=== PATIENT | female | born 1990 | race Caucasian/White ===

== ENCOUNTER 2020-07-03 14:41 | Inpatient (IN) | payer OTHER, SELFPAY ==
--- NOTE | 2020-07-03 14:15 | ADMGEN ---
This patient, Khushboo Feliz, was admitted to Medical Room 252-01. Patient/family oriented to hospital policies and general routines including ID bracelet, bed and alarms, visiting hours, pain management, procedures, bathroom and other care routines, personal items, smoking policy, room service/diet, and visiting hours. Information on how to activate the Rapid Response Team has been discussed. Patient/Family are encouraged to report perceived risks to care and to ask questions if they do not understand what they are told or what they should do.
[2020-07-03 14:30] VITALS: BP 109/69; PULSE 76; RESP 20; TEMP 36.3; O2SAT 100
[2020-07-03 14:44] VITALS: BMI 27.3
[2020-07-03 15:11] LABS: Hematocrit 32.2 % (37.0-47.0); Mean Corpuscular HGB Conc 31.1 g/dl (32-36); Mean Corpuscular Hemoglobin 23.7 pg (26-34); Mean Corpuscular Volume 76.3 fl (80-100); Mean Platelet Volume 9.4 fl (7.4-10.4); Platelet Count Result 196 k/mm3 (150-375); Red Blood Count 4.22 M/mm3 (4.2-5.4); Red Cell Distribution Width 17.2 % (11.5-14.5); White Blood Count 9.4 K/mm3 (4.5-10.0)
[2020-07-03] MEDS: hydrOXYzine HCl 50 MG/ML VIAL 25 MG IM ×2 (15:12→20:19)
[2020-07-03 15:20] LABS: Potassium 3.8 mmol/L (3.4-5.0)
[2020-07-03] MEDS: KETOROLAC 30 MG/ML VIAL (*BKC) IV PUSH (15:23)
[2020-07-03] MEDS: MORPHINE SULFATE (*CRX) 2 MG/ML INJ IV PUSH ×2 (15:24→17:26)
[2020-07-03 15:27] LABS: Alanine Aminotransferase 10 U/L (4-35); Albumin Level 3.9 g/dL (3.5-5.1); Alkaline Phosphatase 77 U/L (38-126); Anion Gap 4 mmol/L (8-16); Aspartate Amino Transferase 22 U/L (14-36); Bilirubin,Total 0.3 mg/dL (0.2-1.3); Blood Urea Nitrogen 5 mg/dL (7-17); Calcium 9.1 mg/dL (8.4-10.2); Carbon Dioxide 29 mmol/L (22-30); Chloride 101 mmol/L (98-107); Estimated CRCL calculation 96 ml/min; Estimated Glomerular Filt Rate > 60; Glucose 109 mg/dL (65-105); Sodium 134 mmol/L (137-145)
[2020-07-03 15:37] LABS: Beta HCG Quantitative < 2.39 mIU/ML; D Dimer 1.68 ug/mL (<0.48)
[2020-07-03 15:52] LABS: Thyroid Stimulating Hormone 0.383 uIU/mL (0.465-4.680)
--- NOTE | 2020-07-03 16:04 | PC.NURSE ---
Called and left voice message for Orin BERMUDEZ regarding elevated D-dimer and continued c/o right sided chest pain with inspiration. Patient also c/o right sided headache - rates both locations 8/10 on pain scale.
[2020-07-03 16:21] LABS: Free T4 Free Thyroxine 1.02 ng/mL (0.78-2.19)
[2020-07-03 18:00] VITALS: BP 106/51; PULSE 69; RESP 16; TEMP 36.1; O2SAT 95
--- NOTE | 2020-07-03 18:57 | WPDHPUPDATE1 ---
History and Physical Update Update Date/Time: 07/03/20 18:57 History and Physical has been reviewed, including an updated exam of the patient. Labs reviewed. Slight hyponatremia noted and anemia is stable from [facility] at Hb 10. Her DDIMER is persistently elevated and she continued to complain about headache and chest pain. She says the ER doc says they couldnt see the lungs but when I reviewed ER documentation, it said CTA neg PE . She is agitated and asked to go smoke a cigarette. Reports her pain is still there and toradol worked the best but morphine isnt helping much. Discussed the laparoscopy procedure in detail and removal of ovarian cyst seen on left ovary. Unlikely ongoing hemorrhage but could have adhesions or hemorrhagic cysts that weigh the ovary over torsing it intermittently. However, with new onset persistent headache and new onset vision changes in the past week with elevated D DIMER, I wanted to have clearance by Medical team and Anesthesia before proceeding with laparoscopy. Will need better pain control and nicotine patch. Will review orders and give something for agitation. If unable to obtain clearance tonight, may allow the patient to eat dinner and proceed with surgery in morning. Risks, benefits, and alternatives have been discussed and questions answered. Patient agrees to proceed with procedure.
[2020-07-03 20:00] VITALS: BP 122/73; PULSE 75; RESP 20; TEMP 36.2; O2SAT 100
[2020-07-03] MEDS: NICOTINE (*PBKC) 21 MG PATCH 1 PATCH TRANSDERM (20:15)
[2020-07-03] MEDS: MEPERIDINE HCL INJ (*CRX) 50 MG/ML AMPUL IM (20:19)
--- NOTE | 2020-07-03 20:24 | PC.NURSE ---
2015 PT ON PHONE WITH MOTHER, YELLING AND CRYING SAYING NOONE CARES THAT I'M IN PAIN. I'M GOING TO SIGN OUT AND GO TO [facility]. INFORMED PT I'M WAITING ON MEDS FROM PHARMACY. I NEED THE NICOTINE PATCH NOW AND IT PROBABLY WONT DO ME ANY GOOD SINCE I'VE BEEN CRAVING A CIGARETTE FOR HOURS.
[2020-07-03 21:09] LABS: Add Urine Microscopic? YES; Appearance Urine Cloudy (Clear); Bacteria Urine Trace /hpf; Bilirubin Urine Negative (Negative); Blood Urine Negative (Negative); Color Urine Yellow (Yellow); Glucose Urine UA Negative (Negative); Ketones Urine 1+ mg/dL (Negative); Leukocyte Esterase Ur 2+ LEU/UL (NEGATIVE); Mucus Urine Few /lpf; Nitrate Urine Negative (Negative); Protein Urine Negative (Negative); Specific Grav Ur 1.012 (1.001-1.035); Squamous Epithelial Cell Urine Few /hpf (Few); Urobilinogen Urine Negative mg/dL (<2.0)
--- NOTE | 2020-07-03 21:40 | PC.NURSE ---
PT SIGNED OUT AMA
--- NOTE | 2020-07-03 21:41 | PC.NURSE ---
GUANAKO BERMUDEZ AND DR WORTHY NOTIFIED PT SIGNED OUT AMA
--- NOTE | 2020-07-13 13:40 | PM.GYNPNOP ---
TUFTING MACHINE OPERATOR SINGLE NEEDLE - A/P Time Spent With Patient Time: Total time spent is greater than 50% in coordination of care (as documented) at patient's floor/unit and/or counseling patient: Time with patient: less than 15 minutes TUFTING MACHINE OPERATOR SINGLE NEEDLE- PN:Subj Post-Op Subjective Date/time seen: 07/13/20 13:40 - late entry for 07/10/2020 10pm The RN called because the patient was irritable and requesting to leave. The RN let her know this would be against medical advice. I has spoken to her earlier in the hospital and I know she was agitated because she had requested to smoke and I refused to let her go outside to do so. She had been admitted for acute abdominal pain and was pending surgical intervention after clearance from medicine. However, she was agitated despite ordering medications including nicotine patch and lorazepam to help. She spoke to the nurse later that evening and decided to leave against medical advice and go to [facility] . RN let me know prior to the patient leaving. Of note, I did call to follow up with her after and she did indeed go to [facility] where they were notified of the positive gonorrhea testing that was done in my office and she recieved IM treatment there. Her pain improved after treatment and will follow up with me after for the ovarian cyst we were intially thinking was the cause of the pain. TUFTING MACHINE OPERATOR SINGLE NEEDLE - PN: Obj Data Labs CBC & Chem 7: 07/03/20 15:05 07/03/20 15:05
== END 2020-07-03 21:35 | disposition left against medical advice (07) | DRG 251 ==
PROVIDERS: Admitting Provider Obstetrics & Gynecology; Visit Provider Obstetrics & Gynecology
DX: R10.0 Acute abdomen (principal); A54.9 Gonococcal infection, unspecified; N83.202 Unspecified ovarian cyst, left side; R51.9 Headache, unspecified; R07.9 Chest pain, unspecified; H53.9 Unspecified visual disturbance; R79.89 Other specified abnormal findings of blood chemistry; E87.1 Hypo-osmolality and hyponatremia; D64.9 Anemia, unspecified; F17.210 Nicotine dependence, cigarettes, uncomplicated
CPT/HCPCS: 36415; 80053; 81001; 84439; 84443; 84702; 85027; 85380; A9270; J1885; J2175; J2270; J3410